=== PATIENT | female | born 1995 | race African-American/Black ===

== ENCOUNTER 2017-07-17 10:52 | Emergency (ER) | payer BC, MEDICAID ==
[~2017-07-17] VITALS: Ht 167.6 cm; Wt 77.0 kg
[2017-07-17 11:12] VITALS: BP 123/82
== END 2017-07-17 17:51 | disposition home or self-care (01) ==
LOC: ER 13:21
DX: J02.9 Acute pharyngitis, unspecified (principal); J45.901 Unspecified asthma with (acute) exacerbation
CPT/HCPCS: 99282

== ENCOUNTER 2018-07-07 21:59 | Emergency (ER) | payer BC, MEDICAID ==
[~2018-07-07] VITALS: Ht 167.6 cm; Wt 75.0 kg
[2018-07-07] MEDS ORDERED: IBUPROFEN 600MG TABLET PO ONE (23:15)
[2018-07-08 01:34] VITALS: BP 141/92
== END 2018-07-08 01:34 | disposition home or self-care (01) ==
LOC: ER 21:59
DX: B34.9 Viral infection, unspecified (principal); J45.909 Unspecified asthma, uncomplicated
CPT/HCPCS: 87070; 87430; 99283